=== PATIENT | female | born 1970 | race Caucasian/White ===

== ENCOUNTER → 2020-06-14 11:00 | Outpatient (CLI) | payer OTHER, SELFPAY ==
--- NOTE | ~2020-06-14 | MM_ITS ---
EXAMINATION: MM scrn kely implant BI w doris HISTORY: Screening mammogram TECHNIQUE: Craniocaudal and mediolateral oblique 3-D tomosynthesis images with implant displacement a nd synthetic 2-D images were generated. Craniocaudal and mediolateral oblique views of the breasts wi thout implant displacement were obtained using full field digital mammography. CAD analysis was submi tted and interpreted. COMPARISON: Comparison to multiple prior studies sequentially, with oldest reviewed study dated 08/19. BREAST PARENCHYMAL COMPOSITION: The breasts are heterogenously dense, which may obscure small masses. FINDINGS: There are subpectoral silicone implants. The left breast is stable without evidence for mal ignancy. There is a focal asymmetry in the upper aspect of the right breast on MLO implant displaced views. IMPRESSION: 1. Focal asymmetry superior aspect of the right breast on MLO view. 2. Additional mammographic views and possible breast ultrasound are recommended. BI-RADS Category 0: Incomplete: Needs additional imaging evaluation. Reviewed, dictated and finalized at location A. ENSATION INTERN IMPRESSION: 1. Focal asymmetry superior aspect of the right breast on MLO view. 2. Additional mammographic views and possible breast ultrasound are recommended . BI-RADS Category 0: Incomplete: Needs additional imaging evaluation.
== END ==
DX: Z12.31 Encounter for screening mammogram for malignant neoplasm of breast (principal); R92.8 Other abnormal and inconclusive findings on diagnostic imaging of breast
CPT/HCPCS: 77063; 77067

== ENCOUNTER → 2020-07-09 09:57 | Outpatient (CLI) | payer OTHER, SELFPAY ==
--- NOTE | ~2020-07-09 | MMUS_ITS ---
EXAMINATION: MM diagnostic mammo implant RT, US breast RT limited HISTORY: Right breast asymmetry on screening mammogram TECHNIQUE: Craniocaudal, mediolateral, and mediolateral oblique 3-D tomosynthesis images with implant displacement an spot compression of the right breast were performed and synthetic 2-D images were ge nerated. Mediolateral view of the right breast without implant displacement was obtained using full field digital mammography. CAD analysis was submitted and interpreted. High resolution limited right breast ultrasound was performed. COMPARISON: 06/15/2019, 04/15/2018, 10/28/2015 FINDINGS: MAMMOGRAPHIC FINDINGS: There is a 6 mm oval, obscured, equal density mass in the upper breast between 11 and 12:00 positions . No definite associated calcification or architectural distortion are identified. ULTRASOUND: There is a 6 mm x 2 mm cyst at the 11:00 location 6 cm from the nipple. A 3 mm cyst is noted at the 1 :00 location 2 cm from the nipple. There is a 4 mm x 2 mm oval, circumscribed, parallel, hypoechoic m ass with no posterior features or internal vascularity at the 9:00 location 2 cm from the nipple. IMPRESSION: 1. Probably benign left breast masses. 2. Recommend 6 month follow-up right diagnostic mammogram and ultrasound. BI-RADS category 3, probably benign findings. Reviewed, dictated and finalized at location A. IMPRESSION: 1. Probably benign left breast masses. 2. Recommend 6 month follow-up right diagnostic mammogram and ultrasound. BI-RADS category 3, probably benign findings.
== END ==
PROVIDERS: Visit Provider Obstetrics & Gynecology
DX: N60.01 Solitary cyst of right breast (principal)
CPT/HCPCS: 76642; 77065

== ENCOUNTER 2021-01-23 09:16 | Outpatient (CLI) | payer OTHER, SELFPAY ==
--- NOTE | 2021-01-23 | EST_ITS ---
Patient Info Name: Amisha Mccall Age: 50 years : 1970 Gender: Female Ht: 64 in Wt: 130 lbs BSA: 1.64 m2 HR: 92 bpm BP: 120 / 59 mmHg Technical Quality: Good Exam Date: 01/23/2021 9:38 AM Exam Location: [facility] Patient Status: Outpatient Admit Date: 01/23/2021 Staff Ordering Physician: Frederic Crockett MD Cleaner Industrial: Bettye Hernandez RDCS Attending Provider: DR. GIPSON Referring Physician: Bon HOGAN; Exercise Technologist: Yvonne Saul CT Exercise Physician: Bipin Gipson DO Exam Type: CA stress echo Study Info Indications - CHEST PAIN Treadmill exercise stress echocardiogram is performed. Summary 1. 1. Negative Gordon exercise stress test for ischemic ST changes by ECG criteria. 2. 2. Mildly reduced functional capacity, achieving 8.9 METs of workload. 3. 3. Appropriate HR response to exercise. 4. 4. Appropriate HR recovery at 1 minute post exercise. 5. 5. Negative stress echocardiogram for ischemia by wall motion analysis. 6. 6. Patient informed of the above results. Stress Echo Findings Left Ventricle Appropriate increase in LV endocardial thickening with systole. Appropriate augmentation of contractility with systole. No wall motion abnormality. Left Ventricle Normal LV systolic function, no wall motion abnormality. Protocol: Gordon Stress ECG Details Stage: REST Duration (min): 1 min : 13 sec Speed (mph): 0.0 Grade (%): 0 HR (bpm): 92 SBP (mmHg): 120 DBP (mmHg): 59 METS: --- Stage: REST Duration (min): 10 min : 6 sec Speed (mph): 0.0 Grade (%): 0 HR (bpm): 90 SBP (mmHg): 120 DBP (mmHg): 59 METS: --- Stage: REST Duration (min): 15 min : 20 sec Speed (mph): 0.0 Grade (%): 0 HR (bpm): 101 SBP (mmHg): 120 DBP (mmHg): 59 METS: --- Stage: STAGE 1 Duration (min): 1 min : 0 sec Speed (mph): 1.7 Grade (%): 10 HR (bpm): 120 SBP (mmHg): 120 DBP (mmHg): 59 METS: --- Stage: STAGE 1 Duration (min): 2 min : 0 sec Speed (mph): 1.7 Grade (%): 10 HR (bpm): 130 SBP (mmHg): 120 DBP (mmHg): 59 METS: --- Stage: STAGE 1 Duration (min): 3 min : 0 sec Speed (mph): 1.7 Grade (%): 10 HR (bpm): 130 SBP (mmHg): 150 DBP (mmHg): 70 METS: --- Stage: STAGE 2 Duration (min): 1 min : 0 sec Speed (mph): 2.5 Grade (%): 12 HR (bpm): 148 SBP (mmHg): 150 DBP (mmHg): 70 METS: --- Stage: STAGE 2 Duration (min): 2 min : 0 sec Speed (mph): 2.5 Grade (%): 12 HR (bpm): 153 SBP (mmHg): 159 DBP (mmHg): 72 METS: --- Stage: STAGE 2 Duration (min): 3 min : 0 sec Speed (mph): 2.5 Grade (%): 12 HR (bpm): 158 SBP (mmHg): 159 DBP (mmHg): 72 METS: --- Stage: STAGE 3 Duration (min): 1 min : 0 sec Speed (mph): 3.4 Grade (%): 14 HR (bpm): 145 SBP (mmHg): 181 DBP (mmHg): 80 METS: --- Stage: STAGE 3 Duration (min): 1
== END 2021-01-23 09:17 | disposition home or self-care (01) ==
PROVIDERS: PCP Emergency Medicine; Visit Provider Emergency Medicine
DX: R07.9 Chest pain, unspecified (principal)
CPT/HCPCS: 93351

== ENCOUNTER → 2021-01-30 09:05 | Outpatient (CLI) | payer OTHER, SELFPAY ==
--- NOTE | ~2021-01-30 | MMUS_ITS ---
EXAMINATION: MM diag kely implant RT w doris, US breast RT limited HISTORY: Six-month follow-up of left probably benign breast masses TECHNIQUE: Implant and implant displaced full field and spot 3-D tomosynthesis images of the right br east were performed and synthetic 2-D images were generated. CAD analysis was submitted and interpret ed. High resolution targeted breast ultrasound was performed. COMPARISON: 06/14/2020 bilateral implant screening mammogram 07/09/2020 diagnostic right mammogram and limited right breast ultrasound BREAST PARENCHYMAL COMPOSITION: The breasts are heterogeneously dense, which may obscure small masses . FINDINGS: MAMMOGRAPHIC FINDINGS: Status post augmentation mammoplasty. No interval suspicious mass or architectural distortion or significant new or developing density is d etected. Stable 5 mm circumscribed mass with some calcifications is noted in the posterior upper mid right breast. Occasional benign calcifications. ULTRASOUND: Right breast implant is noted. 9:00 7 cm from nipple: 1.8 x 3.4 mm cyst 11:00 6 cm from nipple: 2 x 5.6 mm cyst 12:00 4 cm from nipple: 2 x 2.7 mm hypoechoic mildly irregular solid lesion without internal vascular ity or posterior shadowing; six-month follow-up ultrasound imaging targeted to this area is recommend ed 1:00 2 cm from nipple: Parallel circumscribed hypoechoic 1.4 x 3.8 mm area without posterior shadowin g IMPRESSION: 1. Probable benign findings 2. Six-month targeted right breast ultrasound follow-up is recommended at right breast 12:00 4 cm fro m nipple BI-RADS category 3, probably benign findings. Reviewed, dictated and finalized at location A. IMPRESSION: 1. Probable benign findings 2. Six-month targeted right breast ultrasound follow-up is recommended at right breast 12:00 4 cm from nipple BI-RADS category 3, probably benign findings.
== END ==
PROVIDERS: Visit Provider Obstetrics & Gynecology
DX: R92.8 Other abnormal and inconclusive findings on diagnostic imaging of breast (principal)
CPT/HCPCS: 76642; 77061; 77065; G0279

== ENCOUNTER 2021-04-01 01:30 | Day surgery (SDC) | payer OTHER, SELFPAY ==
[2021-03-20 13:43] VITALS: BMI 22.3
[2021-04-01 08:02] VITALS: BP 106/42; PULSE 89; RESP 16; TEMP 37.3; O2SAT 99; BMI 22.3
[2021-04-01] MEDS: LACTATED RINGERS 1,000 ML 150 ML IV CONT (08:04)
--- NOTE | 2021-04-01 08:31 | P.PNAN_ITS ---
Anes - Initial Pre Proc Eval Procedure: Operation Date: 04/01/21 09:15 Proposed Procedures p Screening Colonoscopy - Griffin Angulo MD Date/Time: 04/01/21 08:31 Surgeon: Griffin Angulo MD Pre Op Diagnosis: neoplasm screening Patient Data Age: 51 Gender: F Height: 1.63 m Weight: 59 kg Last Vital Signs Temp 37.3 C 04/01/21 08:02 Pulse 89 04/01/21 08:02 Resp 16 04/01/21 08:02 BP 106/42 L 04/01/21 08:02 Pulse Ox 99 04/01/21 08:02 Allergies Allergy/AdvReac Type Severity Reaction Status Date / Time No Known Allergies Allergy Verified 04/01/21 08:01 Home Medications Medication Instructions Recorded Confirmed Type bupropion HCl 300 mg PO DAILY 03/20/21 04/01/21 History levothyroxine 150 mcg PO DAILY 03/20/21 04/01/21 History liothyronine 25 mcg PO DAILY 03/20/21 04/01/21 History progesterone micronized 200 mg PO DAILY 03/20/21 04/01/21 History Patient hx anesthesia problems: none Family hx anesthesia problems: none Results Review: All pre-operative results and documents have been reviewed as part of the pre-operative evaluation. [facility] Past Medical History Medical History (Updated 04/01/21 @ 08:31 by Melecio Matthews MD) Hypothyroidism Surgical History Surgical History (Updated 04/01/21 @ 08:32 by Melecio Matthews MD) History of section Social History Social History Living arrangements: with family Spiritual care concerns: No Anes - Eval Final PreProcedure Day of Procedure 04/01/21 08:31 Patient weight: normal Heart: regular rate and rhythm Lungs: clear to auscultation Airway: Mallampati scale class II Neurological: alert and oriented Last oral intake: >/= 8 hours ASA classification: II Emergent: no Anesthetic plan: proceed Anesthesia type and monitoring: general GIVS and standard monitoring Results Review: All pre-operative results and documents have been reviewed as part of the pre-operative evaluation. Informed Consent: The patient's anesthetic plan and its attendant risks and benefits were discussed with the patient/family/POA. Questions were solicited and answers provided to the satisfaction of the patient/family/POA.
--- NOTE | 2021-04-01 09:19 | PM.HPGS ---
History of Present Illness History of Present Illness Consent: Risks, benefits, and alternatives have been discussed and questions answered. Patient agrees to proceed with procedure. Chief complaint: neoplasm screening Narrative: Amisha Mccall is a 51 year old female here for first screening colonoscopy Review of Systems Constitutional: Constitutional: Denies headache(s) and Denies weakness Eyes: Eyes: Denies blurry vision ENT: Reports Normal hearing present, Denies headache(s) and Denies neck pain Cardiovascular: Cardiovascular: Denies chest pain and Denies dyspnea Respiratory: Respiratory: Denies dyspnea Gastrointestinal: Gastrointestinal: Reports no additional gastrointestinal complaints Genitourinary: Genitourinary: Denies dysuria Musculoskeletal: Musculoskeletal: Denies neck pain Integumentary/Breasts: Skin/Breast: Denies dry skin Neurologic: Reports Normal hearing present, Denies headache(s) and Denies weakness Psychiatric: Psychiatric: Denies anxiety Endocrine: Endocrine: Denies change in body appearance Hematologic/Lymphatic: Hematologic/Lymphatic: Denies easy bleeding Allergic/Immunologic: Allergic/Immunologic: Denies urticaria PMF Past Medical History Medical History (Updated 04/01/21 @ 09:26 by Griffin Angulo MD) Colon cancer screening Hypothyroidism Surgical History Surgical History (Updated 04/01/21 @ 08:32 by Melecio Matthews MD) History of section Social History Social History Living arrangements: with family Spiritual care concerns: No Meds Home Medications and Allergies Home Medications Medication Instructions Recorded Confirmed Type bupropion HCl 300 mg PO DAILY 03/20/21 04/01/21 History levothyroxine 150 mcg PO DAILY 03/20/21 04/01/21 History liothyronine 25 mcg PO DAILY 03/20/21 04/01/21 History progesterone micronized 200 mg PO DAILY 03/20/21 04/01/21 History Allergies Allergy/AdvReac Type Severity Reaction Status Date / Time No Known Allergies Allergy Verified 04/01/21 08:01 Vital Signs Vital Signs - 24 hr 04/01/21 08:02 Temperature 99.1 F Pulse Rate 89 Respiratory Rate 16 Blood Pressure 106/42 L Pulse Oximetry 99 Exam Const: General: comfortable and no acute distress HENMT: General nose exam: Normal nares present Eyes: General: appearance normal, both eyes and all related structures Neck: Neck: no JVD Resp: Auscultation: clear to auscultation bilaterally Cardio: Rate: regular rate Rhythm: regular rhythm GI: Inspection: non-distended GI Palp: Yes Soft to palpation Skin: General skin exam: normal color Neuro: General: gait normal Speech: normal speech Extrem: General: normal to inspection Psych: Mental Status: mental status grossly normal Assessment and Plan Assessment and plan (1) Colon cancer screening: Code(s): Z12.11 - Encounter for screening for malignant neoplasm of colon Status: Acute Assessment and Plan: colonoscopy
[2021-04-01 09:42] VITALS: BP 100/48; PULSE 78; RESP 24; O2SAT 98
[2021-04-01 09:52] VITALS: BP 100/59; PULSE 74; RESP 20; O2SAT 99
[2021-04-01 10:02] VITALS: BP 107/66; PULSE 69; RESP 16; O2SAT 100
== END 2021-04-01 10:28 | disposition home or self-care (01) ==
PROVIDERS: PCP Emergency Medicine; Visit Provider Internal Medicine Gastroenterology
PROC: 0DJD8ZZ Inspection of Lower Intestinal Tract, Via Natural or Artificial Opening Endoscopic (ICD-10-PCS; CPT 45378; principal; 2021-04-01 09:15)
DX: Z12.11 Encounter for screening for malignant neoplasm of colon (principal); K64.8 Other hemorrhoids; E03.9 Hypothyroidism, unspecified
CPT/HCPCS: 45378; J2704; J7120

== ENCOUNTER → 2021-09-29 09:27 | Outpatient (CLI) | payer OTHER, SELFPAY ==
--- NOTE | ~2021-09-29 | MMUS_ITS ---
EXAMINATION: MM diag kely implant BI w doris, US breast LT complete, US breast RT limited HISTORY: Six-month right breast follow-up for probable benign finding at 12:00 4 cm from nipple TECHNIQUE: ML, MLO and CC 3-D tomosynthesis images of both breasts were performed and synthetic 2-D i mages were generated. Additional spot Tomosynthesis MLO and CC views of left breast. CAD analysis was submitted and interpreted. High resolution targeted right 12:00 and complete left breast ultrasound including all 4 quadrants and subareolar area was performed. COMPARISON: 01/30/2021 and 07/09/2020 diagnostic right mammogram and limited right breast ultrasound e xaminations 06/14/2020 bilateral implant screening mammogram BREAST PARENCHYMAL COMPOSITION: The breasts are heterogeneously dense, which may obscure small masses . FINDINGS: MAMMOGRAPHIC FINDINGS: Status post bilateral augmentation mammoplasty. Possible architectural distortion and overlying infrapatellar retraction is suggested in the lower le ft breast on implant displaced MLO view. Otherwise no suspicious mass, architectural distortion, malignant calcification, skin thickening or r etraction is noted. ULTRASOUND: Right breast: 12:00 4 cm from nipple: 2.5 x 2.4 x 2.7 mm mildly irregular hypoechoic area is noted this is again no rachel. The margins appear more irregular since 01/30/2021. Ultrasound-guided biopsy is recommended. Left breast: 12:00 5 cm from nipple: 4.3 x 3.8 circumscribed sonolucency with through transmission and no vascular ity, consistent with simple cyst 3:00 5 cm from nipple: Parallel circumscribed 3 x 5.1 mm hypoechoic lesion with fatty hilum, consiste nt with benign lymph node 6:00 4 cm from nipple: Parallel circumscribed 1.6 x 6.4 x 3.3 mm solid lesion without internal vascul arity or posterior shadowing, having benign sonographic features. IMPRESSION: 1. Irregular hypoechoic 2.5 x 2.4 x 2.7 mm lesion of right breast at 12:00 4 cm from nipple 2. Ultrasound-guided biopsy of right 12:00 lesion is recommended BI-RADS category 4, suspicious findings. Dr. Claudio telephoned the report and ultrasound guided biopsy recommendation of the right breast 12:00 lesion on 09/29/2021 at 1140 hours to Nurse Ana for Dr. Pereira Reviewed, dictated and finalized at location A. IMPRESSION: 1. Irregular hypoechoic 2.5 x 2.4 x 2.7 mm lesion of right breast at 12:00 4 cm from nipple 2. Ultrasound-guided biopsy of right 12:00 lesion is recommended BI-RADS category 4, suspicious findings. Dr. Claudio telephoned the report and ultrasound guided biopsy recommendation of t derek right breast 12:00 lesion on 09/29/2021 at 1140 hours to Nurse Ana for Josue Pereira IMPRESSION: 1. Irregular hypoechoic 2.5 x 2.4 x 2.7 mm lesion of right breast at 12:00 4 cm from nipple 2. Ultrasound-guided biopsy of right 12:00 lesion is recommended BI-RADS category 4, suspicious findings. Dr. Claudio telephoned the report and ultrasound guided biopsy recommendation of t derek right breast 12:00 lesion on 09/29/2021 at 1140 hours to Nurse Ana for Josue Pereira IMPRESSION: 1. Irregular hypoechoic 2.5 x 2.4 x 2.7 mm lesion of right breast at 12:00 4 cm from nipple 2. Ultrasound-guided biopsy of right 12:00 lesion is recommended BI-RADS category 4, suspicious findings. Dr. Claudio telephoned the report and ultrasound guided biopsy recommendation of t derek right breast 12:00 lesion on 09/29/2021 at 1140 hours to Nurse leeanna Perez
== END ==
PROVIDERS: PCP Emergency Medicine; Visit Provider Obstetrics & Gynecology
DX: Z12.31 Encounter for screening mammogram for malignant neoplasm of breast (principal); R92.8 Other abnormal and inconclusive findings on diagnostic imaging of breast
CPT/HCPCS: 76641; 76642; 77062; 77066; G0279

== ENCOUNTER 2021-10-15 13:32 | Outpatient (CLI) | payer OTHER, SELFPAY ==
--- NOTE | ~2021-10-15 | US_ITS ---
US breast RT limited DATE: 10/15/2021 14:43 INDICATION: Right breast 12:00 lesion; patient presented for ultrasound-guided biopsy TECHNIQUE: Real-time and color flow imaging targeted to right breast 12:00 lesion COMPARISON: 09/29/2021 Limited right breast ultrasound 01/30/2021 Limited right breast ultrasound FINDINGS: The technologist initially scanned this patient and then I personally supervised the ultras ound imaging. The rounded circumscribed lesion at 12:00 4 cm from the nipple currently appears smooth er, with evidence of through transmission. There is no internal vascularity. The lesion appears benig n. IMPRESSION: BI-RADS Category 2: Benign findings Regulation is: Routine annual mammographic screening Reviewed, dictated and finalized at Location A. Reviewed, dictated and finalized at location A.
== END 2021-10-15 13:33 | disposition home or self-care (01) ==
PROVIDERS: PCP Emergency Medicine; Visit Provider Obstetrics & Gynecology
DX: N63.15 Unspecified lump in the right breast, overlapping quadrants (principal)
CPT/HCPCS: 76642

== ENCOUNTER → 2021-12-25 16:01 | Outpatient (CLI) | payer OTHER, SELFPAY ==
--- NOTE | ~2021-12-25 | XR_ITS ---
EXAMINATION: XR chest 2V DATE: 12/25/2021 16:16 INDICATION: Pneumonia due to streptococcus. TECHNIQUE: Frontal and lateral views of the chest were obtained. COMPARISON: Chest 2 views 11/20/2014 FINDINGS: The chest demonstrates clear lungs without pneumonia, pleural effusion, or pneumothorax. Th e heart size is normal. Breast implants are noted. IMPRESSION: 1. No acute cardiopulmonary disease. Reviewed, dictated and finalized at location A.
== END ==
PROVIDERS: PCP Emergency Medicine; Visit Provider Emergency Medicine
DX: J13 Pneumonia due to Streptococcus pneumoniae (principal)
CPT/HCPCS: 71046

== ENCOUNTER → 2022-12-11 14:51 | Outpatient (CLI) | payer OTHER, SELFPAY ==
--- NOTE | ~2022-12-11 | MM_ITS ---
EXAMINATION: MM scrn kely implant BI w doris HISTORY: Screening mammogram TECHNIQUE: Craniocaudal and mediolateral oblique 3-D tomosynthesis images with implant displacement a nd synthetic 2-D images were generated. Craniocaudal and mediolateral oblique views of the breasts wi thout implant displacement were obtained using full field digital mammography. CAD analysis was submi tted and interpreted. COMPARISON: 10/15/2021 Limited right breast ultrasound examination 09/29/2021 diagnostic bilateral implant mammogram and left complete and right Limited breast ultrasoun d 01/30/2021 and 07/09/2020 diagnostic right implant mammogram and limited right breast ultrasound 06/14/2020 bilateral implant screening mammogram BREAST PARENCHYMAL COMPOSITION: The breasts are heterogeneously dense, which may obscure small masses . FINDINGS: Status post bilateral augmentation mammoplasty. Stable appearing circumscribed approximately 4.5 mm opacity in the posterior upper mid outer right br east, with lobular outline, likely a benign intramammary lymph node, not significantly changed since 06/14/2020. There is no evidence of suspicious mass, calcification, or architectural distortion to suggest malign idris in either breast. There has been no suspicious interval change. IMPRESSION: 1. Benign finding. No mammographic evidence of malignancy. 2. Recommend routine screening mammography in one year. BI-RADS Category 2: Benign finding(s). Reviewed, dictated and finalized at location A.
== END ==
PROVIDERS: PCP Obstetrics & Gynecology; Visit Provider Obstetrics & Gynecology
DX: Z12.31 Encounter for screening mammogram for malignant neoplasm of breast (principal)
CPT/HCPCS: 77063; 77067

== ENCOUNTER 2024-06-14 13:20 | Outpatient (CLI) | payer OTHER, SELFPAY ==
--- NOTE | ~2024-06-14 | MM_ITS ---
EXAMINATION: MM scrn kely implant BI w doris HISTORY: Screening mammogram TECHNIQUE: Craniocaudal and mediolateral oblique 3-D tomosynthesis images with implant displacement a nd synthetic 2-D images were generated. Craniocaudal and mediolateral oblique views of the breasts wi thout implant displacement were obtained using full field digital mammography. CAD analysis was submi tted and interpreted. COMPARISON: 12/11/2022, 09/29/2021, 01/30/2021 BREAST PARENCHYMAL COMPOSITION: The breasts are heterogeneously dense, which may obscure small masses . FINDINGS: There is no evidence of suspicious mass, calcification, or architectural distortion to sugg est malignancy in either breast. There has been no suspicious interval change. IMPRESSION: No mammographic evidence of malignancy. Recommend routine screening mammography in one year. BI-RADS Category 1: Negative Reviewed, dictated and finalized at [facility]. CULTIVATOR
--- OUTSIDE RECORDS SUMMARY | 2024-06-14 14:49 | XMS_ITS | CONTINUITY OF CARE DOCUMENT ---
Author Name mindy guillen Address Unknown Organization [facility] Address [address] [place] [address] Phone [phone] Care Team Providers Care Demi Chef Name Role Phone Maverick REECE, Jose Unavailable ELIN DALLAS Unavailable [phone] JERICA PONCE MD Unavailable [phone] PROBLEMS Condition Status Date Provider Notes Cardiovascular screening active Karyn Kate INSURANCE PROVIDERS Payer name Policy type / Coverage type Curtis red democrat ID [employer] insurance company [id number] T[address], Coronary Calcium Score HISTORY OF PROCEDURES Procedure Date Procedure Name Provider Procedure Notes S tatus CT- Coronary CA score Jose Temple MD completed
--- OUTSIDE RECORDS SUMMARY | 2024-06-14 14:49 | XMS_ITS | Referral Summary ---
Author Organization [facility] Address [address] [place] [address] Care Team Providers Care Business Liaison Manager Name Role Phone Unavailable Primary Care Provider Unavailabl e Source Comments [facility],non-owned Affiliates and Associated Physician Practices is amultiple site organization consisting of ambulatory clinics and hospital sitesin [place], [place], [place] and [place]. This disclosure is being madepursuant to the Care Everywhere program and may not contain all information available regarding this patient. Last updated 17.[facility] Allergies No known active allergies Medications * Be aware that medications may not be up to date on this document. Alwaysverify current medications with the patient. Medication Sig Dispensed Refills Start Date End Date Status levothyroxine (SYNTHROID) 25 mcg/mL SUSP Active BUPROPION HCL ER, SR, PO Active Social History Tobacco Use Types Packs/Day Years Used Date Smoking Tobacco: Never Smokeless Tobacco: Never Alcohol Use Standard Drinks/Week Comments Yes 0 (1 standard drink = 0.6 oz pur e alcohol) Sex and Gender Information Value Date Recorded Sex Assigned at Not on file Gender Identity Not on file Sexual Orientation Not on file Last Filed Vital Signs Vital Sign Reading Time Taken Comments Blood Pressure 116/68 02/10/2019 9:24 AM CDT Pulse 81 02/10/2019 9:24 AM CDT Temperature 37.3 C (99.2 F) 02/10/2019 9:24 AM CDT Respiratory Rate 16 02/10/2019 9:24 AM CDT Oxygen Saturation 96% 02/10/2019 9:24 AM CDT Inhaled Oxygen Concentration - - Weight 61.7 kg (136 lb) 02/10/2019 9:24 AM CDT Height 162.6 cm (5' 4 ) 02/10/2019 9:24 AM CDT Body Mass Index 23.34 02/10/2019 9:24 AM CDT Plan of Treatment Not on file
--- OUTSIDE RECORDS SUMMARY | 2024-06-14 14:49 | XMS_ITS | Clinical Summary ---
Author Organization [facility] Address [address] [place] [address] Care Team Providers Care It Business Process Architect Name Role Phone Unavailable Primary Care Provider Unavailabl e Source Comments [facility],non-owned Affiliates and Associated Physician Practices is amultiple site organization consisting of ambulatory clinics and hospital sitesin [place], [place], [place] and [place]. This disclosure is being madepursuant to the Care Everywhere program and may not contain all information available regarding this patient. Last updated 17.[facility] Allergies No known active allergies Medications * [...] 02/10/2019 9:24 AM CDT Plan of Treatment Health Maintenance Due Date Last Done Comments COLOGUARD (AGES 45-75) - COL ON CA SCREENING 1970 COLON MONITORING 1970 COLONOSCOPY - COLON CA SCREENING 1971 CT COLONOGRAPHY - COLON CA SCREENING 1970 Colorectal Cancer Screening 1970 FIT - COLON CA SCREENING 1970 FLEX SIG - COLON CA SCREENING 1970 LIPID TESTING 1970 MAMMOGRAM 1970 PAP SMEAR 1971 HIV SCREENING 1986 HEPATITIS C SCREENING 02/24/1989 DTAP/TDAP/TD VACCINES (1 - Tdap) 1990 HEPATITIS B VACCINE (1 of 3 - 19+ 3-dose series) 1990 PNEUMOCOCCAL VACCINE 50+ (1 of 1 - PCV) 2021 ZOSTER VACCINE (1 of 2) 2021 COVID-19 VACCINE (1 - 2023-2 5 season) 2023 INFLUENZA VACCINE (#1) 2023 DEPRESSION SCREENING 04/12/2024 HIB VACCINE Aged Out No longer eligi ble based on patient's age to complete this topic HPV VACCINE Aged Out No longer eligi ble based on patient's age to complete this topic MENINGOCOCCAL (Group B) VACCINE Aged Out No longer eligible based on patient's age to complete this topic MENINGOCOCCAL VACCINE Aged Out No daisy roseann eligible based on patient's age to complete this topic PNEUMOCOCCAL VACCINE Aged Out No long er eligible based on patient's age to complete this topic
--- OUTSIDE RECORDS SUMMARY | 2024-06-14 14:49 | XMS_ITS | Patient Health Summary ---
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 This disclosure is being madepursuant to the Care Everywhere program and may not contain all information available regarding this patient. Last updated 17.[facility] [employer] Allergies No known active allergies Medications * Be aware that medications may not be up to date on this document. Alwaysverify current medications with the patient. * levothyroxine (SYNTHROID) 25 mcg/mL SUSP * BUPROPION HCL ER, SR, PO Social History Tobacco Use Types Packs/Day Years [...] Mass Index 23.34 02/10/2019 9:24 AM CDT Procedures * PATHOLOGY/CYTOLOGY REPORT ORDER(Performed 05/27/2023) * STREP A SCREEN - POINT OF CARE (AMB) STL(Performed 02/10/2019) Performed for Acute pharyngitis, unspecified etiology Results * PATHOLOGY/CYTOLOGY REPORT ORDER (05/27/2023) 05/27/2023 Narrative 05/27/2023 Ordered by an unspecified provider. Scanned Document LAB - PATHOLOGY/CYTO LOGY ORDERABLES * STREP A SCREEN - POINT OF CARE (AMB) STL (02/10/2019) Strep A Rapid POCT Negative Negative Strep A Internal Control Present Lot # [id number] Expiration Date [id number] Throat ENTIRE THROAT (SURFACE REGION OF NECK) / Unknown 02/10/2019 Shweta Peterson SENIOR PHP DEVELOPER-EMERGENCY PREPAREDNESS COORDINATOR LAB - POINT OF CA RE ORDERABLES
--- OUTSIDE RECORDS SUMMARY | 2024-06-14 14:49 | XMS_ITS | Clinical Summary ---
Author Organization [employer] [facility] on Address [address] [place] [address] Phone Care Team Providers Care Dolly Driver Name Role Phone Brandin Diaz MD Primary Care Provide r Unavailable Allergies No known active allergies Medications progesterone micronized (PROMETRIUM) 100 mg Capsule Take by mouth daily. Active valACYclovir (VALTREX) 500 mg tablet 8 Active silver sulfADIAZINE (Silvadene) 1 % CreamIndications: Partial thickness burn of right hand, unspecified site of hand, initial encounter Apply to affected area daily. 50 Gram 1 1 Active liothyronine (CYTOMEL) 25 mcg Tablet Take 1 Tablet (25 mcg) by mouth daily. 90 Tablet 4 1 Active buPROPion HCL (WELLBUTRIN XL) 300 mg Extended Release 24 hour tablet Take 1 Tablet (300 mg) by mouth daily. 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 TAKE 1 TABLET DAILY EARLY IN THE MORNING 90 Tablet 4 1 Active Active Problems Problem Noted Date Diagnosed Date Abnormality of left breast on screening mammogra m 05/19/2018 Overview (05/19/2018): birads 3 Mood disorder 10/07/2016 On hormone replacement therapy 10/07/2016 Hypothyroidism 02/26/2009 Resolved Problems Problem Noted Date Diagnosed Date Resolved Date Aaron's thyroiditis 02/26/200909/11 Immunizations Immunization Administration Dates Next Due (ADACEL/BOOSTRIX)(10 YR UP) TDAP VACCINE, 0.5ML, IM 08/03/2017 Family History Medical History Relation Name Comments Stroke Father No Known Problems Sister Relation Name Status Comments Father (Age 55) Mother Alive bone loss Sister Alive Social History Tobacco Use Types Packs/Day Years Used Date Smoking Tobacco: Former Cigarettes 0 10/08/2007 - 10/07/2012 Smokeless Tobacco: Never Alcohol Use Standard Drinks/Week Comments Yes 4 (1 standard drink = 0.6 oz pur e alcohol) Comments No Sex and Gender Information Value Date Recorded Sex Assigned at Not on file Legal Sex Female 2:09 PM CDT Gender Identity Not on file Sexual Orientation Not on file Last Filed Vital Signs Vital Sign Reading Time Taken Comments Blood Pressure 104/68 07/30/2020 11:12 AM CDT Pulse 98 07/30/2020 11:12 AM CDT Temperature 36.9 C (98.4 F) 08/03/2017 1:32 PM CDT Respiratory Rate - - Oxygen Saturation 98% 07/30/2020 11:12 AM CDT Inhaled Oxygen Concentration - - Weight 64 kg (141 lb) 07/30/2020 11:12 AM CDT Height 162.6 cm (5' 4 ) 07/30/2020 11:12 AM CDT Body Mass Index 24.2 07/30/2020 11:12 AM CDT Plan of Treatment Health Maintenance Due Date Last Done Comments HEPATITIS B VACCINES (1 of 3 - 19+ 3-dose series) 1990 CERVICAL CANCER SCREENING 2001 COLORECTAL SCREENING 2016 Colorectal Cancer Screening 2016 FIT-DNA Q 3 years 2016 FIT/FOBT Q 1 year 2016 Flex Sig/CT Colonography Q 5 years 2016 BREAST CANCER SCREENING 04/27/2019 04/27/19 19, 04/15/2018, 10/28/2015, Additional history exists ZOSTER VACCINE (1 of 2) 2021 INFLUENZA VACCINE (#1) 2023 DTAP/TDAP/TD VACCINES (2 - Td or Tdap) 08/04/2027 08/03/2017 PNEUMOCOCCAL VACCINE 0-49 YEARS Aged Out No longer eligible based on patient's age to complete this topic Procedures Procedure Name Priority Date/Time Associated Diagnosis Comments MAMMO DIAGNOSTIC UNI LEFT W OR WO CAD Routine 04/27/2018 from Last 3 Months or Most Recently Relevant to Health Maintenance Results * (ABNORMAL) MAMMO DIAGNOSTIC UNI LEFT W OR WO CAD (04/27/2018) Anatomical Region Laterality Modality Breast Left Other us Janelle Pereira MD MAMMO ORDERABLES Edited Resu lt - Final from Last 3 Months or Most Recently Relevant to Health Maintenance Insurance [facility] [employer] PPO [id number] Care Teams Dolly Driver Relationship Specialty Start Date End Date Brandin Diaz MD PCP - General Family Practice 10/07/16
== END 2024-06-14 13:21 | disposition home or self-care (01) ==
LOC: CHSIMG 13:23
PROVIDERS: Visit Provider Obstetrics & Gynecology
DX: Z12.31 Encounter for screening mammogram for malignant neoplasm of breast (principal)
CPT/HCPCS: 77063; 77067